=== PATIENT | female | born 1985 | race Caucasian/White ===

== ENCOUNTER 2024-06-09 11:03 | Emergency (ER) | payer OTHER, SELFPAY ==
[2024-06-09 11:07] VITALS: BP 150/90
--- NOTE | 2024-06-09 11:32 | ED.GENMED ---
History of Present Illness
General
Chief Complaint: Skin Problem
Time Seen by Provider: 06/09/24 11:21
History of Present Illness
History of Present Illness:
39-year-old female presents to the emergency department for evaluation of urticarial skin lesions that are not been ongoing for the past 3 to 4 days. Worsening since onset, went to urgent care yesterday prednisone, took a second dose today but
feels the symptoms have not improved. She reports itching it is only moderately improved with taking Benadryl. No associated fevers or chills. Does note having a mild URI within the past 3 weeks. No myalgias or arthralgias, no dyspnea or
wheezing. No new soaps, topical products, detergents
Past History
Past History
ED Past Medical History: None
ED Past Surgical History: None
Social History
Tobacco: Non-smoker
Alcohol: Other
Personal: Single
Living: with family
Employment: Employed
Family History
Family History: Other (Noncontributory)
Review of Systems
Review of Systems
Allergies reviewed?: Yes
All Other Systems: ROS reviewed and negative except as documented in HPI and ROS
Phy Exam
Physical Exam
Physical Exam:
GEN: Well appearing, NAD, WDWN
HEENT: Oral mucosa moist, no scleral icterus
Cardiac: Regular rate
Lung: No respiratory distress, no tachypnea
MSK: No gross deformity or injuries
Skin: Good color, no pallor or jaundice, widespread urticarial lesions encompassing the anterior torso and upper and lower extremities bilaterally, no lesions to the palms or soles, no lesions to the face or posterior torso. Large lesion noted to
the left upper medial thigh
Neuro: AO x3, moves all extremities freely
Psych: Calm, cooperative
Course
Vital Signs
Initial and Last Documented VS:
Initial Vital Signs
Temp Pulse Resp BP Pulse Ox
98.1 F 96 20 150/90 98
02/19/25 11:07 06/09/24 11:07 06/09/24 11:07 06/09/24 11:07 06/09/24 11:07
Last Documented Vital Signs
Temp Pulse Resp BP Pulse Ox
98.1 F 96 20 150/90 98
06/09/24 11:07 06/09/24 11:07 06/09/24 11:07 06/09/24 11:07 06/09/24 11:07
MDM/Problems Addressed
MDM/Problems Addressed:
Lack of benefit from steroids suspicious for viral etiology. Recommend trial of steroids for 2 further days then discontinuation if no improvement, discussed use of antihistamines. Given the large patch on the left thigh this is likely pityriasis
*Critical Care Note
Total Time (30-74mins, 75-104mins- exclusive of procedures): Not Applicable
ED Attending Note
-
Portions of this chart may have been created with voice recognition software.� Occasional wrong word or��sound alike� substitutions may have occurred due to the inherent limitations of voice recognition software.
Discharge Plan
Departure
Patient Disposition: Home (Routine Discharge)
Date of Disposition: 06/09/24
Time of Disposition: 11:34
Patient with high blood pressure during this ER visit?: No
Discharge Problem:
Viral urticaria
Instructions: Pityriasis rosea
Prescriptions:
No Action
prenat.vits,rosy,[id number] Tablet
1 tab PO DAILY
acetaminophen 325 mg Tablet
650 mg PO Q4HPRN PRN (Reason: mild pain) Qty: 0 0RF
ibuprofen 600 mg Tablet
600 mg PO Q6HPRN PRN (Reason: moderate pain/cramps) Qty: 0 0RF
Referrals:
UNKNOWN - PT DOES,NOT KNOW [Family Provider] -
Stand Alone Forms: Back to School, Return to Work
Activity Restrictions/Additional Instructions:
Try 1-2 more days of the steroids and if there is no improvement you may discontinue. Take 10 mg of cetirizine (Zyrtec) 2-3 times per day to help reduce itching, alternatively you may use 50 mg of Benadryl every 6 hours
I suspect this is a viral cause and will not benefit from steroid use
Interventions
Interventions:
*Risk Screen - Suicide Last Done: 06/09/24 11:40
*General Assessment Last Done: 06/09/24 11:40
*Neglect/Abuse Screening Last Done: 06/09/24 11:40
*ED COVID-19 Vaccine History Last Done: 06/09/24 11:40
*Nursing Disposition Last Done: 06/09/24 12:03
ED-Skin Assessment Last Done: 06/09/24 11:40
Discharge Date and Time
Discharge Date/Time: 06/09/24 12:03
Print Language: MALTESE
== END 2024-06-09 12:03 | disposition home or self-care (01) ==
LOC: EMR 11:03
PROVIDERS: EMERGENCY PHYSICIAN Emergency Medicine
DX: L50.9 Urticaria, unspecified (principal)
CPT/HCPCS: 99282